=== PATIENT | male | born 1965 | race Caucasian/White ===

== ENCOUNTER 2018-11-10 11:35 | Emergency (ER) | payer BC ==
[2018-11-10] MEDS ORDERED: Diphtheria,Pertussis(Acell),Tetanus Vaccine 0.5 ML SDV IM ONE (12:04)
[2018-11-10] MEDS ORDERED: Bacitracin Oint 1 GM U/D Packet TOP ONE (12:05)
[2018-11-10] MEDS ORDERED: Lidocaine 4% 5 ML Amp INJECT ONE (12:05)
--- NOTE | 2018-11-10 12:59 | EDM.PDOC ---
ED HPI GENERAL MEDICAL PROBLEM - General Chief Complaint: Laceration Stated Complaint: LACERATION ON RT INDEX FINGER Time Seen by Provider: 11/10/18 12:59 Source of Information: Reports: Patient History Limitations: Reports: No Limitations - History of Present Illness INITIAL COMMENTS - FREE TEXT/NARRATIVE: pt has a superficial flap typelaceration of the rt indes finger. This is 1/4 inch in length. He has normal and sensation. He was working on some farm machinery. Onset: Today, Sudden Duration: Hour(s): Location: Reports: Upper Extremity, Right Associated Symptoms: Reports: No Other Symptoms Right Finger-Index Pain Score (Numeric/FACES): 3 - Related Data Allergies Allergy/AdvReac Type Severity Reaction Status Date / Time aspirin Allergy Swelling Verified 11/10/18 12:14 Home Meds: Home Meds NK [No Known Home Meds] 11/10/18 [History] Past Medical History Musculoskeletal History: Reports: Fracture Social & Family History - Tobacco Use Smoking Status *Q: Never Smoker - Caffeine Use Caffeine Use: Reports: Soda - Recreational Drug Use Recreational Drug Use: No ED ROS GENERAL - Review of Systems Review Of Systems: See Below Constitutional: Reports: No Symptoms HEENT: Reports: No Symptoms Respiratory: Reports: No Symptoms Cardiovascular: Reports: No Symptoms Endocrine: Reports: No Symptoms GI/Abdominal: Reports: No Symptoms : Reports: No Symptoms Musculoskeletal: Reports: Other (laceration of rt index finger. ) Skin: Reports: No Symptoms Neurological: Reports: No Symptoms ED EXAM, SKIN/RASH Exam: See Below Text/Narrative:: pt arrived with a 1/4 inch laceration of the rt index finger. Exam Limited By: No Limitations General Appearance: Alert, Anxious, Mild Distress Extremities: Other ( There is a 1/4 inch laceration of the inside of the rt index finger. He had normal motion and normal sensation this is superficial. It was trimmed and the flap was tacked down with 4 stitches of 6-0 prolene. it was dressed with bacatracin. He was given a tetanus booster. ) Course - Vital Signs Last Recorded V/S: Last Vital Signs Temp 36.0 C 11/10/18 12:13 Pulse 80 11/10/18 12:13 Resp 19 11/10/18 12:13 BP 122/74 11/10/18 12:13 Pulse Ox 100 11/10/18 12:13 - Orders/Labs/Meds Orders: Active Orders 24 hr Category Date Time Status Vaccines to be Administered [RC] PER UNIT ROUTINE Care 11/10/18 12:05 Active Meds: Medications Discontinued Medications Generic Name Dose Route Start Last Admin Trade Name Don PRN Reason Stop Dose Admin Bacitracin 1 dose 11/10/18 12:05 11/10/18 12:18 Bacitracin Oint 1 Gm TOP 11/10/18 12:06 1 dose ONETIME ONE Administration Diphtheria/Tetanus/Acell Pertussis 0.5 ml 11/10/18 12:04 11/10/18 12:18 Adacel IM 11/10/18 12:05 0.5 ml .ONCE ONE Administration Lidocaine HCl 5 ml 11/10/18 12:05 11/10/18 12:17 Xylocaine-Mpf 4% INJECT 11/10/18 12:06 Not Given ONETIME ONE Lidocaine HCl 5 ml 11/10/18 12:10 11/10/18 12:20 Xylocaine-Mpf 1% INJECT 11/10/18 12:11 5 ml ONETIME ONE Administration Departure - Departure Time of Disposition: 12:57 Disposition: Home, Self-Care 01 Condition: Fair Clinical Impression: Laceration - Discharge Information Referrals: Lele Ta MD [Primary Care Provider] - Forms: ED Department Discharge Care Plan Goals: keep dry ,SR in 7-8 days, keep covered with a dry dressing no further ointments. - My Orders Last 24 Hours: My Active Orders 11/10/18 12:05 Vaccines to be Administered [RC] PER UNIT ROUTINE - Assessment/Plan Last 24 Hours: My Active Orders 11/10/18 12:05 Vaccines to be Administered [RC] PER UNIT ROUTINE
== END 2018-11-10 13:18 | disposition home or self-care (01) ==
LOC: JP.ED 11:35
DX: S61.210A Laceration without foreign body of right index finger without damage to nail, initial encounter (principal); Z23 Encounter for immunization; W30.9XXA Contact with unspecified agricultural machinery, initial encounter
CPT/HCPCS: 12001; 90471; 90715; 99282; J2001

== ENCOUNTER 2022-02-13 11:44 | Emergency (ER) | payer BC ==
[2022-02-13] MEDS ORDERED: Lidocaine 1% 5 ML VIAL INJECT ONE (14:08)
[2022-02-13] MEDS ORDERED: Bacitracin Oint 1 GM U/D Packet TOP ONE (14:08)
== END 2022-02-13 14:43 | disposition home or self-care (01) ==
LOC: JP.ED 11:44
DX: S61.211A Laceration without foreign body of left index finger without damage to nail, initial encounter (principal); Z88.8 Allergy status to other drugs, medicaments and biological substances; W26.0XXA Contact with knife, initial encounter
CPT/HCPCS: 12001; 99282